=== PATIENT | female | born 1975 | race Caucasian/White ===

== ENCOUNTER 2020-12-07 08:56 | Day surgery (SDC) | payer OTHER ==
[2020-12-02 16:25] VITALS: BMI 54.7
[2020-12-07 10:04] VITALS: TEMP 98.2
[2020-12-07 10:47] VITALS: BP 110/66; PULSE 74
== END 2020-12-07 10:49 | disposition home or self-care (01) ==
LOC: FASU-ENDO 08:56
PROVIDERS: ATTEND Internal Medicine Gastroenterology
PROC: 0DB68ZX Excision of Stomach, Via Natural or Artificial Opening Endoscopic, Diagnostic (ICD-10-PCS; 2020-12-07)
PROC: 0DB98ZX Excision of Duodenum, Via Natural or Artificial Opening Endoscopic, Diagnostic (ICD-10-PCS; principal; 2020-12-07 09:37)
DX: K29.50 Unspecified chronic gastritis without bleeding (principal); K29.80 Duodenitis without bleeding; R12 Heartburn
CPT/HCPCS: 84703; 88305-TC; 88342-TC